=== PATIENT | male | born 1955 | race Caucasian/White ===

== ENCOUNTER 2018-09-12 12:09 | Day surgery (SDC) | payer OTHER ==
[2018-09-12] MEDS ORDERED: MIDAZOLAM 1 MG/ML 2 ML INJ ×2 (14:43)
[2018-09-12] MEDS ORDERED: FENTAnyl 50 MCG/ML VIAL (14:43)
== END 2018-09-12 14:56 | disposition home or self-care (01) ==
LOC: GIL 12:09
DX: Z12.11 Encounter for screening for malignant neoplasm of colon (principal); D12.0 Benign neoplasm of cecum; D12.8 Benign neoplasm of rectum; K64.8 Other hemorrhoids
CPT/HCPCS: 45380; 88305